=== PATIENT | male | born 2000 | race Two or more races ===

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

== ENCOUNTER 2021-04-13 16:31 | Emergency (ER) | payer OTHER ==
[2021-04-13] MEDS ORDERED: Bacitracin 1 PK ONE (17:01)
== END 2021-04-13 17:01 | disposition home or self-care (01) ==
LOC: BURERS 16:31
DX: S61.211A Laceration without foreign body of left index finger without damage to nail, initial encounter (principal); W26.8XXA Contact with other sharp object(s), not elsewhere classified, initial encounter
CPT/HCPCS: 99282

== ENCOUNTER 2021-07-17 03:56 | Emergency (ER) | payer OTHER ==
[2021-07-17] MEDS ORDERED: Ibuprofen 800 MG TAB ONE (04:06)
[2021-07-17] MEDS ORDERED: Dexamethasone 10 MG/ML VIAL ONE (04:48)
== END 2021-07-17 05:00 | disposition home or self-care (01) ==
LOC: BURERS 03:56
DX: J02.9 Acute pharyngitis, unspecified (principal)
CPT/HCPCS: 87081; 87430; 99283; J1100

== ENCOUNTER 2024-03-02 18:32 | Emergency (ER) | payer SELFPAY ==
[2024-03-02] MEDS ORDERED: Bicillin LA 1.2 MILLION UNITS/2 ML SYRINGE ONE (20:07)
== END 2024-03-02 20:43 | disposition home or self-care (01) ==
LOC: BURERS 18:32
DX: J02.0 Streptococcal pharyngitis (principal)
CPT/HCPCS: 87081; 87428; 87430; 96372; 99283; J0561